=== PATIENT | male | born 1960 | race Caucasian/White ===

== ENCOUNTER 2016-09-08 09:53 | Day surgery (SDC) | payer OTHER ==
[~2016-09-08] VITALS: Ht 175.3 cm; Wt 103.6 kg
--- NOTE | ~2016-09-08 | OR ---
PATIENT'S NAME: HANNAH PIERCE [facility] AGE: 56 Y [address] ROOM: [place] [address] LOCATION: [facility] [place] ADMIT DATE: 09/08/2016 OR/Procedure Report DISCHARGE DATE: FAMILY PHYSICIAN: Karsten Flores MD ATTENDING PHYSICIAN: Master Ho V SURGEON: Master Ho MD SINGLE POINTED OPERATOR:Nati Barber PA-C DATE OF PROCEDURE: 09/08/2016 PREOPERATIVE DIAGNOSIS: Severe dysplasia, right buccal mucosa. POSTOPERATIVE DIAGNOSIS: Severe dysplasia, right buccal mucosa. OPERATION/PROCEDURE: 1. Excision of 4.5 x 2.5 cm mucosal lesion, right buccal mucosa, with complex closure. 2. Transection of right parotid duct with re-implantation. 3. Incisional biopsy, left buccal mucosa with simple closure. ANESTHESIA: General nasotracheal anesthesia. ESTIMATED BLOOD LOSS: Minimal. COMPLICATIONS: None. DESCRIPTION OF PROCEDURE: The patient was taken to the operating room, laid in a supine position, and underwent general nasotracheal anesthesia. Luz Maria- Cedric mouth gag was inserted opened. The buccal mucosa was visualized. The patient had an exophytic ulcerative lesion occupying the right buccal mucosa measuring approximately 1.5 to 3 cm surrounding the parotid duct. The right parotid duct was then probed, dilated. A #16 Angiocath was placed within the parotid duct and sutured into place. A circumferential incision was performed surrounding the mucosal lesion extending superiorly above and anterior to the parotid duct. The mucosal flap was then elevated posteriorly using curved Metzenbaum scissors. The specimen was removed. The parotid duct was cross- clamped with hemostat and divided, and Angiocath was removed. The parotid duct was transected. The specimen was marked and sent for pathology. The superior margin was positive. Additional 0.5 cm margin was removed superiorly. The parotid duct was dissected from the underlying buccal mucosa. The mucosal incision anteriorly was closed using interrupted 4-0 chromic sutures. The duct was then re-implanted into the incision line with interrupted 4-0 chromic sutures circumferentially. The mucosa posterior to the duct implantation was then closed with interrupted 5-0 Vicryl suture. The mucosa was undermined inferiorly and advanced. The incision line was able to be closed with interrupted 5-0 Vicryl suture. Attention was then turned to PATIENT'S NAME: HANNAH PIERCE [facility] AGE: 56 Y [address] ROOM: [address] [address] LOCATION: [facility] [place] ADMIT DATE: 09/08/2016 OR/Procedure Report DISCHARGE DATE: FAMILY PHYSICIAN: Karsten Flores MD ATTENDING PHYSICIAN: Master Ho V the left. The patient was noted to have a small hyperkeratotic-appearing lesion occupying the left buccal mucosa. Approximately, 1.5 x 1 cm elliptical biopsy was performed and sent for pathology. This was closed using interrupted 4-0 chromic suture x3. The patient tolerated the procedure well. A previously placed vaginal pack within the posterior pharynx was removed. The posterior pharynx was suctioned. Mouth was irrigated with copious amounts of saline solution. Luz Maria-Cedric mouth gag was released and removed. The patient was aroused, extubated, and discharged from the operating room to the recovery room in satisfactory condition. MASTER HO MD TVC/modl /[id number] d: 09/09/16 0018 t: 09/15/16 0729, OPERATIVE SUMMARY
[~2016-09-08 09:53] MED LIST: ALLERGY RELIEF10 M3 PO; AMBIEN10 MG PO; CALCIUM WITH V1 EAC1 PO; CPAP INH; CYMBALTA30 MG PO; DULOXETINE HCL60 MG PO; ELAVIL **IA 9100 MG PO; FISH OIL 1,0001 EAC4 PO; FISH OIL 1,0001 EAC5 PO; GLUCOSAMINE &1 EAC1 PO; LAXATIVE25 MG PO; LIPITOR40 MG PO; LISINOPRIL-HCT1 EACH PO; VITAMIN D-32000 UNI1 PO; ZANTAC (NON-FO150 MG PO
[2016-09-08] MEDS ORDERED: KEFLEX500 MG PO (18:49)
[2016-09-08] MEDS ORDERED: TYLENOL WITH C1 EACH PO (18:50)
[2016-09-08] MEDS ORDERED: PERIDEX15 ML MT (18:51)
[2016-09-08 19:52] LABS: HEMATOCRIT 39.1 % (37.0-53.0)
[2016-09-09 05:42] LABS: HEMATOCRIT 35.3 % (37.0-53.0); HEMOGLOBIN 11.6 g/dL (12.0-17.0)
[2016-12-15] MEDS ORDERED: NORCO 5-325 TA1 EACH PO (11:15)
[2016-12-15] MEDS ORDERED: [UNRECOGNIZED DRUG - OTHER] PO (11:16)
== END 2016-09-09 09:55 | disposition disaster alternative care site (69) ==
LOC: GSDC 09:53 → GMSU 20:07 → GSDC 09-09 09:55
PROVIDERS: Otolaryngology
PROC: 0CB40ZZ Excision of Buccal Mucosa, Open Approach (ICD-10-PCS; principal; 2016-09-08)
PROC: 0CBB0ZZ Excision of Right Parotid Duct, Open Approach (ICD-10-PCS; 2016-09-08)
PROC: 0CB40ZX Excision of Buccal Mucosa, Open Approach, Diagnostic (ICD-10-PCS; 2016-09-08)
DX: D00.00 Carcinoma in situ of oral cavity, unspecified site (principal); K12.1 Other forms of stomatitis; K13.29 Other disturbances of oral epithelium, including tongue; Z79.899 Other long term (current) drug therapy
CPT/HCPCS: J0171; J1100; J1170; J2175; J2270; J2405; J2550; J3010; J7030

== ENCOUNTER → 2016-12-15 | Day surgery (SDC) | payer OTHER ==
[~2016-12-15] VITALS: Ht 175.3 cm; Wt 102.6 kg
[~2016-12-15] MED LIST changes: +KEFLEX500 MG PO; +NORCO 5-325 TA1 EACH PO; +PERIDEX15 ML MT; +TYLENOL WITH C1 EACH PO; +[UNRECOGNIZED DRUG - OTHER] PO
--- NOTE | ~2016-12-15 | OR ---
PATIENT'S NAME: HANNAH PIERCE [facility] AGE: 56 Y [address] ROOM: [place] [address] LOCATION: [facility] [place] ADMIT DATE: 12/15/2016 OR/Procedure Report DISCHARGE DATE: FAMILY PHYSICIAN: Karsten Flores MD ATTENDING PHYSICIAN: Master Ho V SURGEON: Master Ho MD RESEARCH LIBRARIAN: Sky Ho, PGY5. DATE OF PROCEDURE: 12/15/2016 PREOPERATIVE DIAGNOSIS: Carcinoma in situ, right buccal mucosa. POSTOPERATIVE DIAGNOSIS: Carcinoma in situ, right buccal mucosa. OPERATION/PROCEDURE: Excisional biopsy, 2 cm right buccal mucosal lesion with CO2 laser ablation. DESCRIPTION OF PROCEDURE: The patient was taken to the operating room, laid in supine position, and underwent general nasotracheal anesthesia. Head was rotated to the right. A bite block was placed in the left. The tongue was reflected medially. Buccal mucosa was visualized. Stensen's duct was noted to be patent on the right from previous implantation. The patient had a firm exophytic lesion occupying the right buccal mucosa along the lateral aspect of the second molar. This was infiltrated with 1% lidocaine with epinephrine solution. Approximately 2 to 2.5 cm elliptical skin incision performed using a #15 blade. Specimen was removed, marked, and sent for pathology with CO2 laser. The hemostasis obtained using CO2 laser. Peripheral mucosa extending approximately an additional half to 1 cm, was lasered with the CO2 laser without difficulty sparing the Stensen's duct. This was carried up into the buccal gingival sulcus superiorly. Hemostasis was noted to be adequate. The patient tolerated the procedure well, was aroused, extubated, and discharged. Bite block was removed. The patient was aroused, extubated, and discharged from the operating room to the recovery room in satisfactory condition. MASTER HO MD TVC/modl /[id number] d: 12/15/167 t: 12/25/16 1844, OPERATIVE SUMMARY
== END | disposition disaster alternative care site (69) ==
LOC: GPOC 12-04 09:00 → GSDC 07:00
PROC: 0CB40ZZ Excision of Buccal Mucosa, Open Approach (ICD-10-PCS; principal; 2016-12-15)
DX: D00.00 Carcinoma in situ of oral cavity, unspecified site (principal); K21.9 Gastro-esophageal reflux disease without esophagitis; I10 Essential (primary) hypertension; E78.00 Pure hypercholesterolemia, unspecified; G47.30 Sleep apnea, unspecified; E78.2 Mixed hyperlipidemia; Z90.49 Acquired absence of other specified parts of digestive tract; Z98.41 Cataract extraction status, right eye; Z98.42 Cataract extraction status, left eye; Z98.890 Other specified postprocedural states; Z96.642 Presence of left artificial hip joint; Z79.899 Other long term (current) drug therapy
CPT/HCPCS: J2001; J3010; J7120